=== PATIENT | female | born 1955 | race Caucasian/White ===

== ENCOUNTER 2022-06-21 08:33 | Emergency (ER) | payer MEDICARE, OTHER ==
[2022-06-21 08:43] VITALS: BP 172/82; PULSE 84
[2022-06-21] MEDS ORDERED: Lidocaine 1% 30 ML SDV INJECT ONE (08:45)
== END 2022-06-21 09:17 | disposition home or self-care (01) ==
LOC: VM.ED 08:33
DX: S90.212A Contusion of left great toe with damage to nail, initial encounter (principal); E78.00 Pure hypercholesterolemia, unspecified; J45.909 Unspecified asthma, uncomplicated; M06.9 Rheumatoid arthritis, unspecified; E11.9 Type 2 diabetes mellitus without complications; E03.9 Hypothyroidism, unspecified; Z88.8 Allergy status to other drugs, medicaments and biological substances; Z91.048 Other nonmedicinal substance allergy status; Z91.018 Allergy to other foods; Z79.899 Other long term (current) drug therapy; Z79.84 Long term (current) use of oral hypoglycemic drugs; W20.8XXA Other cause of strike by thrown, projected or falling object, initial encounter
CPT/HCPCS: 11740; 99283